=== PATIENT | male | born 1960 | race Caucasian/White ===

== ENCOUNTER → 2019-10-09 13:30 | Outpatient (BNVA) | payer MEDICARE, SELFPAY | PROVIDERS: Family Provider Nurse Practitioner Family; PCP Nurse Practitioner Family; Visit Provider Nurse Practitioner Family | DX: L03.90 Cellulitis, unspecified (principal) | CPT/HCPCS: 87070 ==

== ENCOUNTER → 2024-12-03 11:31 | Outpatient (BNVA) | payer OTHER, SELFPAY | PROVIDERS: PCP Family Medicine; Visit Provider Internal Medicine Cardiovascular Disease | DX: R07.89 Other chest pain (principal); R53.83 Other fatigue; R94.31 Abnormal electrocardiogram [ECG] [EKG]; Z98.61 Coronary angioplasty status; R06.09 Other forms of dyspnea; R07.9 Chest pain, unspecified | CPT/HCPCS: 93005; 99204 ==